=== PATIENT | male | born 1970 | race Caucasian/White ===

== ENCOUNTER 2017-07-25 11:56 | Emergency (ER) | payer OTHER ==
[2017-07-25 12:22] VITALS: BP 139/92
--- NOTE | 2017-07-25 12:33 | UC ---
Laceration HPI - HPI Summary HPI Summary: pt c/o of laceration to left 5th finger on distal finger, "pad" o f finger. Pt reports that his finger was crushed between a metal box and wall just prior ot arrival. pt states he is UTD with tetanus. - History Of Current Complaint Chief Complaint: UCTrauma Stated Complaint: LEFT PINKY LACERATION WC Time Seen by Provider: 07/25/17 12:22 Hx Obtained From: Patient Laceration Location: Finger - left 5th Mechanism Of Injury: Blunt Trauma Onset/Duration: Sudden Onset Severity: Mild Aggravating Factors: Position, Movement - Allergies/Home Medications Allergies/Adverse Reactions: Allergies Allergy/AdvReac Type Severity Reaction Status Date / Time hay fever Allergy Wheezing Uncoded 07/25/17 12:22 Home Medications: Home Medications Rivaroxaban TAB(*) [Xarelto 20 mg] 07/25/17 [History] PMH/Surg Hx/FS Hx/Imm Hx Previously Healthy: Yes - Surgical History Surgical History: Yes Surgery Procedure, Year, and Place: right shoulder surgery 2007. right knee surgery 1984 - Family History Known Family History: Positive: Hypertension - Social History Occupation: Employed Full-time Lives: With Family Alcohol Use: Occasionally Substance Use Type: None Smoking Status (MU): Never Smoked Tobacco Have You Smoked in the Last Year: No - Immunization History Most Recent Influenza Vaccination: not this season Most Recent Tetanus Shot: within 5 years Review of Systems Constitutional: Negative Skin: Other - laceration left 5ht finger Eyes: Negative ENT: Negative Respiratory: Negative Cardiovascular: Negative Gastrointestinal: Negative Genitourinary: Negative Motor: Negative Neurovascular: Negative Musculoskeletal: Arthralgia - left 5th finger distal, Neurological: Negative Psychological: Negative Is Patient Immunocompromised?: No All Other Systems Reviewed And Are Negative: Yes Physical Exam Triage Information Reviewed: Yes Appearance: Well-Appearing Vital Signs: Initial Vital Signs Temp 98.4 F 07/25/17 12:18 Pulse 78 07/25/17 12:18 Resp 18 07/25/17 12:18 BP 139/92 07/25/17 12:18 Pulse Ox 100 07/25/17 12:18 Vital Signs Reviewed: Yes Eye Exam: Normal ENT Exam: Normal Dental Exam: Other - hallitosis Respiratory: Positive: No respiratory distress Musculoskeletal Exam: Normal Musculoskeletal: Positive: Strength Intact, ROM Intact, No Edema Neurological Exam: Normal Psychological Exam: Normal Skin Exam: Other - laceration to left distal palmar aspect aspect of 5th finger. Laceration Repair - Laceration Repair 1 Description: Linear Laceration Size After Repair: Length (cm) - 2, Width (mm) - 2, Depth (mm) - 2 Modified For Repair: No Cleansing Completed Via Routine Prep: Yes Closure Material: Skin Adhesive Closure Method: Single Layer Suture Of: Skin Laceration Course/Dx - Differential Dx - Laceration/Wound Differental Diagnoses: Laceration Provider Diagnoses: laceration left 5th finger. contusion left 5th finger Discharge - Discharge Plan Condition: Stable Disposition: HOME Patient Education Materials: Laceration (ED), Contusion in Adults (ED), Skin Adhesive Care (ED) Referrals: Shira Tellez MD [Primary Care Provider] - If Needed
--- NOTE | 2017-07-25 13:10 | RAD ---
INDICATION: Crush injury, open wound left fifth finger. TECHNIQUE: 3 views of the left fifth finger were obtained. FINDINGS: There is soft tissue swelling present. The bones are in normal alignment. No fracture is seen. IMPRESSION: SOFT TISSUE SWELLING, NO FRACTURE IS SEEN.
== END 2017-07-25 13:24 | disposition home or self-care (01) ==
LOC: UCCORT 11:56
DX: S61.217A Laceration without foreign body of left little finger without damage to nail, initial encounter (principal); S60.052A Contusion of left little finger without damage to nail, initial encounter; W23.0XXA Caught, crushed, jammed, or pinched between moving objects, initial encounter; Y93.9 Activity, unspecified; Y92.9 Unspecified place or not applicable; Y99.0 Civilian activity done for income or pay; I10 Essential (primary) hypertension
CPT/HCPCS: 12001; 73140; 99211; G0463